=== PATIENT | female | born 1965 | race Two or more races ===

== ENCOUNTER 2024-12-10 09:00 | Day surgery (SDC) | payer OTHER ==
[2024-12-07 08:21] VITALS: BP 121/81
[2024-12-07 10:05] LABS: BASO % 0.7 % (0.1-1.2); EOS # 0.31 (0.04-0.54); EOS % 4.4 % (0.7-7.0); LYMPH # 2.16 (1.18-3.74); LYMPH % 30.8 % (19.3-53.1); MEAN PLATELET VOLUME 11.10 fl (9.4-12.4); MONO # 0.46 (0.24-0.82); MONO % 6.6 % (4.7-12.5); NEUT # 4.01 (1.56-6.13); NEUT % 57.2 % (34.0-71.1); RED CELL DISTRIBUTION WIDTH 12.6 % (11.6-14.4)
[2024-12-07 10:25] LABS: URINE APPEARANCE Clear; URINE BILIRRUBIN Negative (NEGATIVE); URINE BLOOD Negative; URINE COLOR Yellow; URINE GLUCOSE Negative (NEGATIVE); URINE KETONE Negative (NEGATIVE); URINE LEUKOCYTE Trace; URINE NITRATE Negative; URINE PROTEIN Negative (NEGATIVE); URINE UROBILINOGEN 0.2 E.U./dl
[2024-12-07 10:29] LABS: INR 0.94
[2024-12-07 10:31] LABS: URINE BACTERIA 28.7 uL (0.0-1933); URINE EPITHELIAL CELLS 18.1 uL (0.0-38.8); URINE RBC 2.6 uL (0.0-20.8); URINE WBC 7.6 uL (0.0-23.2)
[2024-12-07 10:42] LABS: URINE CAST 0.14 uL (0.0-1.40)
[2024-12-07 10:52] LABS: ALT/SGPT 21.0 U/L (12-78); AST/SGOT 12.0 U/L (15-37); BILIRUBIN TOTAL 0.51 mg/dL (0.3-1.2); BUN CREA RATIO 32.0 (7.0-25.0); CREATININE SERUM 0.74 mg/dL (0.55-1.02); GFR 80.05; GLOBULINA 3.7 G/DL (2.4-3.5); GLUCOSE FASTING 98.0 mg/dL (65-100); OSMOLALITY SERUM 289.0 MOSM/KG (275-295); TSH 2.49 uIU/mL (0.358-3.74)
[~2024-12-10] VITALS: Ht 162.6 cm; Wt 89.8 kg
[~2024-12-10 09:00] MED LIST: ATACAND HCT 321 EACH PO; CLONAZEPAM2 MG PO; LIPITOR20 MG PO
[2024-12-10] MEDS ORDERED: CEFOXITIN SODIUM 2,000 MG VIAL IV ONE (10:07)
[2024-12-10] MEDS ORDERED: POVIDONE-IODINE 118 ML BOTT TOP ONE (10:32)
[2024-12-10] MEDS ORDERED: PROMETHAZINE HCL 50 MG/ML AMPUL IM ONE (12:15)
[2024-12-10] MEDS ORDERED: NAPR500T14 PO (12:19)
[2024-12-10] MEDS ORDERED: AVIDOXY100 MG PO (12:19)
== END 2024-12-10 16:05 | disposition home or self-care (01) ==
LOC: CIR.AMB 09:00
PROVIDERS: ATTEND Obstetrics & Gynecology
DX: D25.0 Submucous leiomyoma of uterus (principal); N84.0 Polyp of corpus uteri; N92.0 Excessive and frequent menstruation with regular cycle